=== PATIENT | male | born 1980 | race Asian ===

== ENCOUNTER 2017-03-25 22:10 | Emergency (ER) | payer MEDICARE, OTHER ==
[~2017-03-25] VITALS: Ht 162.6 cm; Wt 86.4 kg
[~2017-03-25 22:10] MED LIST: DIVA250T25 PO; OLAN10TA3 PO; TRAZ-147 PO; VALS160T2 PO
[2017-03-25 22:36] VITALS: BP 155/98
[2017-03-25] MEDS ORDERED: LURA80 PO (22:54)
== END 2017-03-26 01:07 | disposition left against medical advice (07) ==
LOC: EMS 22:13
DX: Z53.21 Procedure and treatment not carried out due to patient leaving prior to being seen by health care provider (principal)

== ENCOUNTER 2018-06-27 13:31 | Inpatient (IN) | payer MEDICARE, MEDICAID ==
[~2018-06-27] VITALS: Ht 162.6 cm; Wt 73.3 kg
[~2018-06-27 13:31] MED LIST changes: -DIVA250T25 PO; +LURA80 PO; -OLAN10TA3 PO; -TRAZ-147 PO; -VALS160T2 PO
[2018-06-27 14:27] LABS: BASOPHILS % (AUTO) 0.6 % (0.0-2.0); EOSINOPHILS % (AUTO) 0.3 % (1.0-6.0); HEMATOCRIT 52.3 % (41-53); LYMPHOCYTES # (AUTO) 1.2 K/uL (1.0-4.8); LYMPHOCYTES % (AUTO) 12.3 % (22.0-44.0); MEAN CORPUSCULAR HGB CONC 34.4 G/dL (31.0-37.0); MEAN CORPUSCULAR VOLUME 84 fL (80-100); MONOCYTES # (AUTO) 0.9 K/uL (0.1-1.0); MONOCYTES % (AUTO) 9.3 % (2.0-9.0); NEUTROPHILS # (AUTO) 7.7 K/uL (1.8-7.7); NEUTROPHILS % (AUTO) 77.5 % (40.0-70.0); PLATELET COUNT (AUTO) 445 K/uL (150-450); RED BLOOD CELL COUNT(AUTO) 6.21 MIL/uL (4.50-5.90); RED CELL DISTRIBUTION WIDTH 12.9 % (11.5-14.5)
[2018-06-27 14:37] LABS: CALCIUM, TOTAL 9.7 mg/dL (8.8-10.5); CREATININE 1.63 mg/dL (0.60-1.30); POTASSIUM 3.3 mmol/L (3.5-5.1)
[2018-06-27 14:44] LABS: ALBUMIN 4.7 g/dL (3.4-5.0); BILIRUBIN,TOTAL 1.2 mg/dL (0.1-1.0); TOTAL PROTEIN, SERUM 8.7 g/dL (6.4-8.2)
[2018-06-27] MEDS ORDERED: DiphenhydrAMINE HCL 25 MG CAPSULE PO ONE (15:30)
[2018-06-27] MEDS: LORazepam 2 MG TABLET PO ONE ×2 (15:35→15:42)
[2018-06-27] MEDS ORDERED: HALOPERIDOL LACTATE 5 MG/ML VIAL IM ONE (15:45)
[2018-06-27] MEDS ORDERED: DiphenhydrAMINE HCL 50 MG/ML VIAL IM ONE (15:45)
[2018-06-27] MEDS ORDERED: LORazepam 2 MG/ML VIAL IM ONE (15:45)
[2018-06-27 15:52] LABS: AMPHET/METH SCREEN,URINE NEGATIVE (NEGATIVE); BARBITURATE SCREEN, URINE NEGATIVE (NEGATIVE); BENZODIAZEPINES SCREEN,URINE NEGATIVE (NEGATIVE); CANNABINOID SCREEN,URINE NEGATIVE (NEGATIVE); COCAINE SCREEN,URINE NEGATIVE (NEGATIVE); METHADONE SCREEN, URINE NEGATIVE (NEGATIVE); OPIATE SCREEN,URINE NEGATIVE (NEGATIVE)
[2018-06-27 15:54] LABS: PHENCYCLIDINE SCREEN,URINE NEGATIVE (NEGATIVE)
[2018-06-27] MEDS: DIVALPROEX SODIUM 500 MG ER TABLET PO SCH (21:50)
[2018-06-27] MEDS: OLANZapine 10 MG TABLET PO SCH (21:51)
[2018-06-27] MEDS: MIRTAZAPINE 15 MG TABLET PO SCH (21:51)
[2018-06-28] MEDS ORDERED: DiphenhydrAMINE HCL 50 MG/ML VIAL IM ONE (05:00)
[2018-06-28] MEDS ORDERED: HALOPERIDOL LACTATE 5 MG/ML VIAL IM ONE (05:00)
[2018-06-28] MEDS ORDERED: LORazepam 2 MG/ML VIAL IM ONE (05:00)
[2018-06-28 09:25] VITALS: BP 159/106
[2018-06-28] MEDS: OLANZapine 10 MG TABLET PO SCH ×2 (09:28→16:24)
[2018-06-28] MEDS: LORazepam 2 MG TABLET PO PRN (09:28)
[2018-06-28] MEDS: DIVALPROEX SODIUM 500 MG ER TABLET PO SCH ×2 (09:28→16:24)
[2018-06-28] MEDS ORDERED: ARIPiprazole 15 MG TABLET PO SCH (10:15)
[2018-06-28] MEDS ORDERED: DIVALPROEX SODIUM 500 MG DR TABLET PO SCH (10:15)
[2018-06-28] MEDS ORDERED: POTASSIUM CHLORIDE 20 MEQ ER TABLET PO ONE (11:45)
[2018-06-28] MEDS: HALOPERIDOL 5 MG TABLET PO PRN (12:13)
[2018-06-28] MEDS ORDERED: MAG HYDROX/AL HYDROX/SIMETH ES 30 ML SUSPENSION UDCUP PO PRN (14:45)
[2018-06-28] MEDS ORDERED: MAGNESIUM HYDROXIDE SUSPENSION 30 ML UDCUP PO PRN (14:45)
[2018-06-28] MEDS ORDERED: GuaiFENesin/D-METHORPHAN [SUGAR-FREE] 200-20MG/10 ML SYRUP UDCUP PO PRN (14:45)
[2018-06-28] MEDS ORDERED: DOCUSATE SODIUM 100 MG CAPSULE PO PRN (14:45)
[2018-06-28] MEDS ORDERED: CloNIDine HCL 0.1 MG TABLET PO PRN (14:45)
[2018-06-28] MEDS ORDERED: ONDANSETRON HCL 4 MG TABLET PO PRN (14:45)
[2018-06-28] MEDS ORDERED: LOPERAMIDE HCL 2 MG CAPSULE PO PRN (14:45)
[2018-06-28] MEDS ORDERED: IBUPROFEN 400 MG TABLET PO PRN (14:45)
[2018-06-28] MEDS ORDERED: ALBUTEROL SULFATE HFA 90 MCG/PUFF 8 GM INHALER IH PRN (14:45)
[2018-06-28] MEDS ORDERED: PETROLATUM,WHITE 71 GM JELLY TP PRN (14:45)
[2018-06-28] MEDS ORDERED: NICOTINE 14 MG/24 HOUR PATCH TD PRN (14:45)
[2018-06-28] MEDS ORDERED: ACETAMINOPHEN 325 MG TABLET PO PRN (14:45)
[2018-06-28 16:00] VITALS: BP 132/72
[2018-06-28 16:24] VITALS: BP 132/86
[2018-06-28] MEDS: MIRTAZAPINE 15 MG TABLET PO SCH (20:31)
[2018-06-29] MEDS: ZOLPIDEM TARTRATE 10 MG TABLET PO PRN ×2 (00:15→20:37)
[2018-06-29] MEDS: HALOPERIDOL 5 MG TABLET PO PRN (00:15)
[2018-06-29] MEDS: LORazepam 2 MG TABLET PO PRN ×3 (00:15→20:37)
[2018-06-29 00:29] VITALS: BP 139/101
[2018-06-29 04:38] VITALS: BP 119/88
[2018-06-29 08:27] LABS: CHOL/HDL RATIO 3.3 (4.2-7.3); POTASSIUM 3.2 mmol/L (3.5-5.1)
[2018-06-29] MEDS: OLANZapine 10 MG TABLET PO SCH (09:00)
[2018-06-29] MEDS: DIVALPROEX SODIUM 500 MG ER TABLET PO SCH ×2 (09:00→16:37)
[2018-06-29] MEDS ORDERED: POTASSIUM CHLORIDE 20 MEQ ER TABLET PO ONE (09:00)
[2018-06-29 09:04] VITALS: BP 146/101
[2018-06-29 09:09] VITALS: BP 144/92
[2018-06-29] MEDS: ARIPiprazole 15 MG TABLET PO SCH (10:53)
[2018-06-29 17:33] VITALS: BP 140/80
[2018-06-29] MEDS: MIRTAZAPINE 15 MG TABLET PO SCH (20:37)
[2018-06-30 00:13] VITALS: BP 144/94
[2018-06-30 08:16] VITALS: BP 153/91
[2018-06-30] MEDS: DIVALPROEX SODIUM 500 MG ER TABLET PO SCH ×2 (08:30→16:51)
[2018-06-30] MEDS: ARIPiprazole 15 MG TABLET PO SCH (08:30)
[2018-06-30] MEDS ORDERED: AmLODIPine BESYLATE 2.5 MG TABLET PO SCH (09:00)
[2018-06-30 09:30] VITALS: BP 142/87
[2018-06-30] MEDS: LORazepam 2 MG TABLET PO PRN (16:51)
[2018-06-30 18:46] VITALS: BP 159/110
[2018-06-30] MEDS: AmLODIPine BESYLATE 10 MG TABLET PO SCH (19:27)
[2018-06-30 20:24] VITALS: BP 149/84
[2018-06-30] MEDS: MIRTAZAPINE 15 MG TABLET PO SCH (20:27)
[2018-06-30] MEDS: ZOLPIDEM TARTRATE 10 MG TABLET PO PRN (20:27)
[2018-07-01 01:47] VITALS: BP 143/91
[2018-07-01 08:12] VITALS: BP 140/89
[2018-07-01] MEDS: AmLODIPine BESYLATE 10 MG TABLET PO SCH (08:46)
[2018-07-01] MEDS: ARIPiprazole 15 MG TABLET PO SCH (08:46)
[2018-07-01] MEDS: DIVALPROEX SODIUM 500 MG ER TABLET PO SCH ×2 (08:46→16:32)
[2018-07-01 16:00] VITALS: BP 138/77
[2018-07-01] MEDS: HALOPERIDOL 5 MG TABLET PO PRN (16:32)
[2018-07-01] MEDS: LORazepam 2 MG TABLET PO PRN (16:32)
[2018-07-01] MEDS: MIRTAZAPINE 15 MG TABLET PO SCH (21:00)
[2018-07-02 04:35] VITALS: BP 141/73
[2018-07-02 08:08] VITALS: BP 143/90
[2018-07-02] MEDS: DIVALPROEX SODIUM 500 MG ER TABLET PO SCH ×2 (08:42→16:11)
[2018-07-02] MEDS: AmLODIPine BESYLATE 10 MG TABLET PO SCH (08:42)
[2018-07-02] MEDS: ARIPiprazole 15 MG TABLET PO SCH (08:42)
[2018-07-02 16:10] VITALS: BP 127/75
[2018-07-02] MEDS: MIRTAZAPINE 15 MG TABLET PO SCH (20:09)
[2018-07-03 03:21] VITALS: BP 145/93
[2018-07-03 08:07] VITALS: BP 143/95
[2018-07-03] MEDS: DIVALPROEX SODIUM 500 MG ER TABLET PO SCH (08:39)
[2018-07-03] MEDS: ARIPiprazole 15 MG TABLET PO SCH (08:39)
[2018-07-03] MEDS: AmLODIPine BESYLATE 10 MG TABLET PO SCH (08:39)
[2018-07-03] MEDS ORDERED: DIVA500T52 PO (13:57)
[2018-07-03] MEDS ORDERED: MIRT15 PO (14:00)
[2018-07-03] MEDS ORDERED: ARIP15TA2 PO (14:01)
[2018-07-03] MEDS ORDERED: AMLO-512 PO (14:03)
== END 2018-07-03 15:05 | disposition home or self-care (01) | DRG 885 ==
LOC: EMS 13:34 → B3A 06-28 05:34
PROVIDERS: ADMIT Psychiatry & Neurology Psychiatry; ATTEND Psychiatry & Neurology Psychiatry
DX: F25.0 Schizoaffective disorder, bipolar type (principal); R45.851 Suicidal ideations; F17.200 Nicotine dependence, unspecified, uncomplicated; E87.6 Hypokalemia; I10 Essential (primary) hypertension; F41.9 Anxiety disorder, unspecified; R74.0 Nonspecific elevation of levels of transaminase and lactic acid dehydrogenase [LDH]
CPT/HCPCS: 84132; 96372; 99291; J1200; J1630; J2060

== ENCOUNTER 2019-03-21 22:07 | Emergency (ER) | payer MEDICARE, OTHER ==
[~2019-03-21] VITALS: Ht 162.6 cm; Wt 86.4 kg
[~2019-03-21 22:07] MED LIST changes: +AMLO-512 PO; +ARIP15TA2 PO; +DIVA500T52 PO; -LURA80 PO; +MIRT15 PO
[2019-03-21] MEDS ORDERED: [UNRECOGNIZED DRUG - CODE] PO (22:38)
[2019-03-21] MEDS ORDERED: LURA80 PO (22:38)
[2019-03-21] MEDS ORDERED: DIVA-78 PO (22:38)
[2019-03-22 00:27] LABS: BASOPHILS % (AUTO) 1.2 % (0.0-2.0); EOSINOPHILS % (AUTO) 3.6 % (1.0-6.0); HEMATOCRIT 48.9 % (41-53); HEMOGLOBIN 16.4 g/dL (13.5-17.5); LYMPHOCYTES # (AUTO) 2.4 K/uL (1.0-4.8); LYMPHOCYTES % (AUTO) 34.2 % (22.0-44.0); MEAN CORPUSCULAR HEMOGLOBIN 29.2 pg (26.0-34.0); MEAN CORPUSCULAR HGB CONC 33.6 G/dL (31.0-37.0); MEAN CORPUSCULAR VOLUME 87 fL (80-100); MONOCYTES # (AUTO) 0.6 K/uL (0.1-1.0); MONOCYTES % (AUTO) 8.9 % (2.0-9.0); NEUTROPHILS # (AUTO) 3.6 K/uL (1.8-7.7); NEUTROPHILS % (AUTO) 52.1 % (40.0-70.0); PLATELET COUNT (AUTO) 323 K/uL (150-450); RED BLOOD CELL COUNT(AUTO) 5.61 MIL/uL (4.50-5.90); RED CELL DISTRIBUTION WIDTH 13.1 % (11.5-14.5)
[2019-03-22 00:35] VITALS: BP 142/82
[2019-03-22 00:38] LABS: ANION GAP 7 mmol/L (8-16); CALCIUM, TOTAL 9.1 mg/dL (8.8-10.5); CARBON DIOXIDE 31 mmol/L (22-29); CHLORIDE 102 mmol/L (98-107); CREATININE 1.13 mg/dL (0.60-1.30); GLOMERULAR FILTR. RATE CALC > 60 mL/min (>60); GLUCOSE,RANDOM 109 mg/dL (70-110); POTASSIUM 4.1 mmol/L (3.5-5.1); SODIUM SERUM 140 mmol/L (136-145); UREA NITROGEN, BLOOD 14 mg/dL (7-18)
[2019-03-22 00:45] LABS: ALANINE AMINOTRANSFERASE 29 U/L (12-78); ALBUMIN 3.9 g/dL (3.4-5.0); ALKALINE PHOSPHATASE 92 U/L (46-116); ASPARTATE AMINOTRANSFERASE 12 U/L (15-37); BILIRUBIN,TOTAL 0.3 mg/dL (0.1-1.0); TOTAL PROTEIN, SERUM 7.7 g/dL (6.4-8.2)
[2019-03-22 00:49] LABS: GLUCOSE,POINT OF CARE 123 MG/DL (70-110)
== END 2019-03-22 01:20 | disposition home or self-care (01) ==
LOC: EMS 22:08
DX: R42 Dizziness and giddiness (principal); R51 Headache; I10 Essential (primary) hypertension; F41.9 Anxiety disorder, unspecified; F32.9 Major depressive disorder, single episode, unspecified; F20.9 Schizophrenia, unspecified; Z79.899 Other long term (current) drug therapy
CPT/HCPCS: 82948

== ENCOUNTER 2022-06-27 23:49 | Emergency (ER) | payer MEDICARE, OTHER ==
[~2022-06-27] VITALS: Ht 165.1 cm; Wt 77.3 kg
[~2022-06-27 23:49] MED LIST changes: +AMLO-258 PO; -AMLO-512 PO; -ARIP15TA2 PO; +DIVA-112 PO; -DIVA500T52 PO; +LURA80TA2 PO; -MIRT15 PO; +[UNRECOGNIZED DRUG - CODE] PO
[2022-06-28 00:12] VITALS: BP 132/94
== END 2022-06-28 01:10 | disposition left against medical advice (07) ==
LOC: EMS 23:49
DX: Z53.21 Procedure and treatment not carried out due to patient leaving prior to being seen by health care provider (principal)

== ENCOUNTER 2022-06-28 07:37 | Inpatient (IN) | payer MEDICARE, MEDICAID ==
[~2022-06-28] VITALS: Ht 167.6 cm; Wt 73.2 kg
[2022-06-28 08:47] LABS: BASOPHILS % (AUTO) 0.7 % (0.0-2.0); HEMATOCRIT 42.2 % (41-53); LYMPHOCYTES # (AUTO) 1.5 K/uL (1.0-4.8); LYMPHOCYTES % (AUTO) 12.3 % (22.0-44.0); MEAN CORPUSCULAR HEMOGLOBIN 28.4 pg (26.0-34.0); MEAN CORPUSCULAR HGB CONC 33.2 G/dL (31.0-37.0); MEAN CORPUSCULAR VOLUME 86 fL (80-100); MONOCYTES # (AUTO) 0.7 K/uL (0.1-1.0); NEUTROPHILS # (AUTO) 9.5 K/uL (1.8-7.7); PLATELET COUNT (AUTO) 673 K/uL (150-450); RED BLOOD CELL COUNT(AUTO) 4.92 MIL/uL (4.50-5.90)
[2022-06-28 08:57] LABS: ANION GAP 5 mmol/L (8-16); CALCIUM, TOTAL 8.8 mg/dL (8.8-10.5); CARBON DIOXIDE 30 mmol/L (22-29); CHLORIDE 102 mmol/L (98-107); CREATININE 0.91 mg/dL (0.60-1.30); GLOMERULAR FILTR. RATE CALC > 60 mL/min (>60); GLUCOSE,RANDOM 85 mg/dL (70-110); POTASSIUM 4.1 mmol/L (3.5-5.1); SODIUM SERUM 137 mmol/L (136-145); UREA NITROGEN, BLOOD 19 mg/dL (7-18)
[2022-06-28 09:04] LABS: ALANINE AMINOTRANSFERASE 65 U/L (12-78); ALBUMIN 4.2 g/dL (3.4-5.0); ALKALINE PHOSPHATASE 88 U/L (46-116); ASPARTATE AMINOTRANSFERASE 28 U/L (15-37); BILIRUBIN,TOTAL 0.9 mg/dL (0.1-1.0); TOTAL PROTEIN, SERUM 7.8 g/dL (6.4-8.2)
[2022-06-28 11:36] LABS: AMPHET/METH SCREEN,URINE NEGATIVE (NEGATIVE); BARBITURATE SCREEN, URINE NEGATIVE (NEGATIVE); BENZODIAZEPINES SCREEN,URINE NEGATIVE (NEGATIVE); CANNABINOID SCREEN,URINE NEGATIVE (NEGATIVE); COCAINE SCREEN,URINE NEGATIVE (NEGATIVE); METHADONE SCREEN, URINE NEGATIVE (NEGATIVE); OPIATE SCREEN,URINE NEGATIVE (NEGATIVE)
[2022-06-28 11:37] LABS: PHENCYCLIDINE SCREEN,URINE NEGATIVE (NEGATIVE)
[2022-06-28] MEDS ORDERED: HALOPERIDOL 5 MG TABLET PO ONE (12:45)
[2022-06-28] MEDS ORDERED: LORazepam 2 MG TABLET PO ONE (12:45)
[2022-06-28] MEDS: DiphenhydrAMINE HCL 25 MG CAPSULE PO ONE ×2 (12:52→12:57)
[2022-06-28 13:21] LABS: COVID AG,FIA SOURCE NASAL SWAB
[2022-06-28] MEDS ORDERED: HALOPERIDOL LACTATE 5 MG/ML VIAL IM ONE ×2 (14:15→18:15)
[2022-06-28] MEDS ORDERED: DiphenhydrAMINE HCL 50 MG/ML VIAL IM ONE ×2 (14:15→18:15)
[2022-06-28] MEDS ORDERED: DIAZEPAM 5 MG/ML 2 ML SYRINGE IM ONE (14:15)
[2022-06-28] MEDS ORDERED: LORazepam 2 MG/ML VIAL ONE (18:03)
[2022-06-28] MEDS ORDERED: LORazepam 2 MG/ML VIAL IM ONE (18:15)
[2022-06-28] MEDS ORDERED: MAG HYDROX/AL HYDROX/SIMETH ES 30 ML SUSPENSION UDCUP PO PRN (19:00)
[2022-06-28] MEDS ORDERED: CloNIDine HCL 0.1 MG TABLET PO PRN (19:00)
[2022-06-28] MEDS ORDERED: ONDANSETRON HCL 4 MG TABLET PO PRN (19:00)
[2022-06-28] MEDS ORDERED: ALBUTEROL SULFATE HFA 90 MCG/PUFF 8 GM INHALER IH PRN (19:00)
[2022-06-28] MEDS ORDERED: IBUPROFEN 600 MG TABLET PO PRN (19:00)
[2022-06-28] MEDS ORDERED: ACETAMINOPHEN 325 MG TABLET PO PRN (19:00)
[2022-06-28] MEDS ORDERED: LOPERAMIDE HCL 2 MG CAPSULE PO PRN (19:00)
[2022-06-28] MEDS ORDERED: PETROLATUM,WHITE 28 GM JELLY TP PRN (19:00)
[2022-06-28] MEDS ORDERED: BENZOCAINE/MENTHOL LOZENGE PO PRN (19:00)
[2022-06-28] MEDS ORDERED: MAGNESIUM HYDROXIDE SUSPENSION 30 ML UDCUP PO PRN (19:00)
[2022-06-28] MEDS ORDERED: BACITRACIN 28 GM OINTMENT TP PRN (19:00)
[2022-06-29] MEDS: HALOPERIDOL 5 MG TABLET PO PRN ×3 (05:34→17:56)
[2022-06-29] MEDS: LORazepam 2 MG TABLET PO PRN ×3 (05:35→17:56)
[2022-06-29] MEDS: AmLODIPine BESYLATE 10 MG TABLET PO SCH (08:26)
[2022-06-29] MEDS: OMEPRAZOLE 20 MG CAPSULE PO SCH (08:26)
[2022-06-29 08:27] VITALS: BP 134/87
[2022-06-29] MEDS: DOCUSATE SODIUM 100 MG CAPSULE PO SCH (08:27)
[2022-06-29 20:07] VITALS: BP 160/82
[2022-06-29] MEDS: LURASIDONE HCL 80 MG TABLET PO SCH (20:17)
[2022-06-29] MEDS: LITHIUM CARBONATE 300 MG CAPSULE PO SCH (20:18)
[2022-06-29] MEDS: ZOLPIDEM TARTRATE 10 MG TABLET PO PRN (20:18)
[2022-06-30] MEDS: LORazepam 2 MG TABLET PO PRN ×2 (03:06→09:28)
[2022-06-30] MEDS: HALOPERIDOL 5 MG TABLET PO PRN (03:06)
[2022-06-30 08:08] VITALS: BP 131/74
[2022-06-30] MEDS: AmLODIPine BESYLATE 10 MG TABLET PO SCH (08:15)
[2022-06-30] MEDS: OMEPRAZOLE 20 MG CAPSULE PO SCH (08:15)
[2022-06-30] MEDS: DIVALPROEX SODIUM 500 MG DR TABLET PO SCH ×4 (08:15→16:51)
[2022-06-30] MEDS: DOCUSATE SODIUM 100 MG CAPSULE PO SCH ×2 (08:15→09:00)
[2022-06-30] MEDS: LITHIUM CARBONATE 300 MG CAPSULE PO SCH ×2 (09:00→20:34)
[2022-06-30 20:31] VITALS: BP 140/90
[2022-06-30] MEDS: LURASIDONE HCL 80 MG TABLET PO SCH (20:34)
[2022-07-01] MEDS: HALOPERIDOL 5 MG TABLET PO PRN ×2 (01:52→16:55)
[2022-07-01] MEDS: LORazepam 2 MG TABLET PO PRN ×4 (01:52→20:56)
[2022-07-01] MEDS: OMEPRAZOLE 20 MG CAPSULE PO SCH (08:05)
[2022-07-01] MEDS: AmLODIPine BESYLATE 10 MG TABLET PO SCH (08:05)
[2022-07-01 08:15] VITALS: BP 140/89
[2022-07-01] MEDS: DOCUSATE SODIUM 100 MG CAPSULE PO SCH (08:29)
[2022-07-01] MEDS: DIVALPROEX SODIUM 500 MG DR TABLET PO SCH ×3 (08:29→16:05)
[2022-07-01] MEDS: LITHIUM CARBONATE 300 MG CAPSULE PO SCH ×2 (08:29→20:56)
[2022-07-01 20:07] VITALS: BP 132/82
[2022-07-01] MEDS: LURASIDONE HCL 80 MG TABLET PO SCH (20:55)
[2022-07-02] MEDS: OMEPRAZOLE 20 MG CAPSULE PO SCH (08:11)
[2022-07-02] MEDS: LITHIUM CARBONATE 300 MG CAPSULE PO SCH ×2 (08:11→20:23)
[2022-07-02] MEDS: DIVALPROEX SODIUM 500 MG DR TABLET PO SCH ×3 (08:11→16:45)
[2022-07-02] MEDS: DOCUSATE SODIUM 100 MG CAPSULE PO SCH (08:11)
[2022-07-02] MEDS: AmLODIPine BESYLATE 10 MG TABLET PO SCH (08:11)
[2022-07-02 08:54] VITALS: BP 143/88
[2022-07-02] MEDS: LORazepam 2 MG TABLET PO PRN ×2 (14:02→20:23)
[2022-07-02 20:07] VITALS: BP 140/80
[2022-07-02] MEDS: HALOPERIDOL 5 MG TABLET PO PRN (20:23)
[2022-07-02] MEDS: LURASIDONE HCL 80 MG TABLET PO SCH (20:23)
[2022-07-02] MEDS: ZOLPIDEM TARTRATE 10 MG TABLET PO PRN (20:23)
[2022-07-03] MEDS: LORazepam 2 MG TABLET PO PRN ×4 (00:53→20:20)
[2022-07-03] MEDS: HALOPERIDOL 5 MG TABLET PO PRN ×2 (00:53→16:11)
[2022-07-03] MEDS: LITHIUM CARBONATE 300 MG CAPSULE PO SCH ×2 (08:23→20:20)
[2022-07-03] MEDS: DOCUSATE SODIUM 100 MG CAPSULE PO SCH (08:23)
[2022-07-03] MEDS: DIVALPROEX SODIUM 500 MG DR TABLET PO SCH ×3 (08:23→16:11)
[2022-07-03] MEDS: AmLODIPine BESYLATE 10 MG TABLET PO SCH (08:23)
[2022-07-03] MEDS: OMEPRAZOLE 20 MG CAPSULE PO SCH (08:23)
[2022-07-03] MEDS ORDERED: LORazepam 2 MG/ML VIAL IM ONE (09:00)
[2022-07-03] MEDS ORDERED: HALOPERIDOL LACTATE 5 MG/ML VIAL IM ONE (09:00)
[2022-07-03] MEDS ORDERED: DiphenhydrAMINE HCL 50 MG/ML VIAL IM ONE (09:00)
[2022-07-03 13:42] VITALS: BP 105/74
[2022-07-03 20:00] VITALS: BP 119/73
[2022-07-03] MEDS: ZOLPIDEM TARTRATE 10 MG TABLET PO PRN (20:20)
[2022-07-03] MEDS: LURASIDONE HCL 80 MG TABLET PO SCH (20:20)
[2022-07-04] MEDS: AmLODIPine BESYLATE 10 MG TABLET PO SCH (08:09)
[2022-07-04] MEDS: DOCUSATE SODIUM 100 MG CAPSULE PO SCH (08:21)
[2022-07-04] MEDS: OMEPRAZOLE 20 MG CAPSULE PO SCH (08:21)
[2022-07-04] MEDS: LITHIUM CARBONATE 300 MG CAPSULE PO SCH (08:21)
[2022-07-04] MEDS: DIVALPROEX SODIUM 500 MG DR TABLET PO SCH ×2 (08:21→13:03)
[2022-07-04 09:41] LABS: GLUCOMETER DEV NAME(LOC) POC.BV
[2022-07-04] MEDS ORDERED: LURA80TA2 PO (12:46)
[2022-07-04] MEDS ORDERED: DIVA-112 PO (12:46)
[2022-07-04] MEDS ORDERED: LITH300C3 PO (12:46)
[2022-07-04 13:47] VITALS: BP 117/63
[2022-07-04] MEDS: LORazepam 2 MG TABLET PO PRN (13:49)
[2022-07-05] MEDS ORDERED: ASPIRIN 81 MG DR TABLET PO SCH (09:00)
== END 2022-07-04 18:14 | disposition home or self-care (01) | DRG 885 ==
LOC: EMS 07:42 → B3A 16:45
PROVIDERS: ADMIT Psychiatry & Neurology Psychiatry; ATTEND Psychiatry & Neurology Psychiatry
DX: F25.9 Schizoaffective disorder, unspecified (principal); F41.9 Anxiety disorder, unspecified; G47.00 Insomnia, unspecified; I10 Essential (primary) hypertension; Z20.822 Contact with and (suspected) exposure to COVID-19; K59.00 Constipation, unspecified; Z87.891 Personal history of nicotine dependence
CPT/HCPCS: 80053; 80061; 80164; 80178; 85025; 99291; G0480; J1200; J1630; J2060

== ENCOUNTER 2024-12-25 09:38 | Emergency (ER) | payer MEDICARE, OTHER ==
[~2024-12-25] VITALS: Ht 162.6 cm; Wt 90.0 kg
[~2024-12-25 09:38] MED LIST changes: +LITH300C3 PO; -[UNRECOGNIZED DRUG - CODE] PO
[2024-12-25 09:44] VITALS: PULSE 114; TEMP 98.2
[2024-12-25] MEDS ORDERED: AMLO5TAB66 PO (09:47)
[2024-12-25] MEDS ORDERED: LOSA-382 PO (09:47)
[2024-12-25] MEDS ORDERED: ATOR10TA69 PO (09:47)
[2024-12-25] MEDS ORDERED: LURA60TA4 PO (09:47)
[2024-12-25] MEDS ORDERED: HALO5TAB2 PO (09:47)
[2024-12-25 11:30] VITALS: BP 154/103; RESP 18; O2SAT 97
== END 2024-12-25 12:31 | disposition home or self-care (01) ==
LOC: EMS 09:39
DX: I10 Essential (primary) hypertension (principal); F25.9 Schizoaffective disorder, unspecified; E78.00 Pure hypercholesterolemia, unspecified; Z79.899 Other long term (current) drug therapy; Z98.890 Other specified postprocedural states
CPT/HCPCS: 99281; Z7502

== ENCOUNTER 2025-07-10 02:53 | Emergency (ER) | payer MEDICARE, OTHER ==
[~2025-07-10] VITALS: Ht 162.6 cm; Wt 98.6 kg
[~2025-07-10 02:53] MED LIST changes: -AMLO-258 PO; +AMLO5TAB66 PO; +ATOR10TA69 PO; -DIVA-112 PO; +HALO5TAB2 PO; -LITH300C3 PO; +LOSA-382 PO; +LURA60TA4 PO; -LURA80TA2 PO
[2025-07-10 02:58] VITALS: BP 117/84; PULSE 98; RESP 18; TEMP 98.1; O2SAT 96
[2025-07-10 03:39] LABS: PLATELET COUNT (AUTO) 388 K/uL (150-450); RED BLOOD CELL COUNT(AUTO) 5.52 MIL/uL (4.50-5.90); RED CELL DISTRIBUTION WIDTH 13.5 % (11.5-14.5); WHITE BLOOD COUNT (AUTO) 6.4 K/uL (4.5-11.0)
[2025-07-10 03:47] LABS: COVID AG,FIA SOURCE NASAL SWAB
[2025-07-10 04:15] LABS: CALCIUM, TOTAL 8.3 mg/dL (8.8-10.5); CREATININE 0.85 mg/dL (0.60-1.30); GLOMERULAR FILTR. RATE CALC > 60 mL/min (>60); GLUCOSE,RANDOM 123 mg/dL (70-110); SODIUM SERUM 141 mmol/L (136-145); UREA NITROGEN, BLOOD 12 mg/dL (7-18)
[2025-07-10 04:18] LABS: SARS-COV2 (COVID) ANTIGEN,FIA Negative (Negative)
[2025-07-10 04:19] LABS: INFLUENZA TYPE A NEGATIVE FOR TYPE A (NEGATIVE); INFLUENZA TYPE B NEGATIVE FOR TYPE B (NEGATIVE)
[2025-07-10 04:25] LABS: TROPONIN I-HIGH SENSITIVITY 5 ng/L (<76)
[2025-07-10] MEDS: POTASSIUM CHLORIDE 20 MEQ ER TABLET PO ONE (04:56)
== END 2025-07-10 05:03 | disposition home or self-care (01) ==
LOC: EMS 02:55
DX: R05.3 Chronic cough (principal); E87.6 Hypokalemia; E78.00 Pure hypercholesterolemia, unspecified; I10 Essential (primary) hypertension; Z98.890 Other specified postprocedural states; Z79.899 Other long term (current) drug therapy; Z20.822 Contact with and (suspected) exposure to COVID-19
CPT/HCPCS: 71045; 80048; 84484; 85025; 87804; 93005; 99285; 36415-L1; 36415-TC